=== PATIENT | female | born 1965 | race Caucasian/White ===

== ENCOUNTER 2016-11-23 10:33 | Emergency (ER) | payer OTHER ==
[~2016-11-23] VITALS: Ht 157.5 cm; Wt 77.1 kg
--- NOTE | 2016-11-23 10:33 | NUR ---
Pt arrived with c/o palpitations and chest pressure. HR 155 on monitor pt converted to NSR with staff at bedside. EKG given to Dr. Lugo.
--- NOTE | 2016-11-23 10:33 | NUR ---
Arrived as walk in with compliant of palpitations, SOB, chest pressure and weakness since this morning. Patient reports that [place] [facility] [place], she had mildly elevated Troponin, no definative DX was reached. Placed in room 2. Placed on general internist and physician leader, blood pressure machine and pulse oximeter. To gown for exam. Side rails up. Report given to Henrry CA.
--- NOTE | 2016-11-23 10:35 | NUR ---
ER Dr. Lugo at bedside examining patient.
[2016-11-23 10:40] VITALS: BP_SYST 123
--- NOTE | 2016-11-23 10:41 | NUR ---
Note undone in EDM - 11/23/16 at 1050 by DRE Arrived as walk in with compliant of palpitations, SOB, chest pressure and weakness since this morning. Patient reports that she was recently admited at [facility] for the same reason, she had mildly elevated Troponin, no definative DX was reached. Placed in room 2. Placed on telemetry monitor, blood pressure machine and pulse oximeter. To gown for exam. Side rails up. Report given to Henrry CA.
--- NOTE | 2016-11-23 10:42 | NUR ---
Quincy perdomo in ED - 11/23/16 at 1050 by SDDONANCYJ CONSTANTINO Lugo at bedside examining patient.
--- NOTE | 2016-11-23 10:50 | NUR ---
Quincy perdomo in ED - 11/23/16 at 1051 by SDDOURRJ CONSTANTINO Lugo at bedside examining patient.
[2016-11-23] MEDS ORDERED: METO25TA6 PO (10:51)
[2016-11-23 11:01] LABS: BASOPHILS % (AUTO) 0.5 % (0.0-2.0); EOSINOPHILS # (AUTO) 0.1 K/uL (0.0-0.4); HEMATOCRIT 35.2 % (36-48); HEMOGLOBIN 11.4 g/dL (12.0-16.0); LYMPHOCYTES # (AUTO) 1.7 K/uL (1.0-5.5); LYMPHOCYTES % (AUTO) 23.8 % (20.5-51.5); MEAN CORPUSCULAR HEMOGLOBIN 27 pg (27-31); MEAN CORPUSCULAR HGB CONC 32 % (32-36); MEAN CORPUSCULAR VOLUME 84 fL (79.0-98.0); MONOCYTES # (AUTO) 0.5 K/uL (0.0-1.0); MONOCYTES % (AUTO) 7.3 % (1.7-9.3); NEUTROPHILS # (AUTO) 4.8 K/uL (1.8-7.7); NEUTROPHILS % (AUTO) 66.4 % (40.0-70.0); PLATELET COUNT (AUTO) 348 K/uL (130-430); RED BLOOD CELL COUNT(AUTO) 4.19 MIL/uL (4.2-6.2); RED CELL DISTRIBUTION WIDTH 13.4 % (9.0-15.0); WHITE BLOOD COUNT (AUTO) 7.1 K/uL (4.8-10.8)
--- NOTE | 2016-11-23 11:17 | NUR ---
Patient resting quietly. No acute distress noted. Denies chest pain. Vital signs within normal range.
[2016-11-23 11:20] LABS: CALCIUM 8.7 mg/dL (8.4-11.0); CREATININE 0.87 mg/dL (0.55-1.30)
[2016-11-23 11:26] LABS: ALBUMIN 3.7 g/dL (3.4-4.8); TOTAL BILIRUBIN 0.6 mg/dL (0.0-1.0); TOTAL PROTEIN, SERUM 8.1 g/dL (6.4-8.3)
--- NOTE | 2016-11-23 12:05 | NUR ---
Patient given written and verbal discharge instructions and verbalizes understanding. ER MD discussed with patient the results and treatment provided. Patient in stable condition. ID arm band removed. IV DC with cath intact. Patient educated on pain management and to follow up with PMD. Pain Scale 0/10. Opportunity for questions provided and answered.
[2016-11-23 12:06] VITALS: BP_SYST 123
== END 2016-11-23 12:05 | disposition home or self-care (01) ==
LOC: SED 10:33
DX: I47.1 Supraventricular tachycardia (principal); Z88.1 Allergy status to other antibiotic agents; Z88.2 Allergy status to sulfonamides; Z79.899 Other long term (current) drug therapy
CPT/HCPCS: 36415; 71010; 80053; 83880; 84484; 85025; 93005; 99285